=== PATIENT | female | born 1995 | race Caucasian/White ===

== ENCOUNTER 2018-12-04 08:50 | Emergency (ER) | payer SELFPAY ==
[~2018-12-04] VITALS: Ht 162.6 cm; Wt 80.0 kg
[~2018-12-04 08:50] MED LIST: CYCL10TA7 PO; IBUP-1542 PO
[2018-12-04 08:56] VITALS: BP 129/72; PULSE 86; RESP 18; Ht 162.6 cm; Wt 80.0 kg
[2018-12-04] MEDS ORDERED: KETOROLAC 30 MG INJ IM STA (09:15)
[2018-12-04] MEDS ORDERED: DEXAMETHASONE 10 MG/ML 1 ML INJ IM ONE (09:30)
== END 2018-12-04 10:05 | disposition home or self-care (01) ==
LOC: FTE 08:50
DX: M62.838 Other muscle spasm (principal)
CPT/HCPCS: 81025; 96372; 99284; J1100; J1885